=== PATIENT | female | born 1950 | race Caucasian/White ===

== ENCOUNTER → 2016-06-23 | Outpatient (CLI) | payer MEDICARE ==
[2016-06-23 14:18] VITALS: BP 120/80; PULSE 96; RESP 20; TEMP 97.8; BMI 43.2
--- NOTE | 2016-06-23 14:35 | P.PN ---
Progress Note - Text The patient's lap band port was palpated. The site was aseptically prepped. 1% lidocaine was infiltrated into the subcutaneous tissues through a diabetic syringe. The Fleming needle was advanced into the port. Aspiration took place. A total of 2.8 ml of fluid was added. Pressure was held and a sterile dressing was applied.
--- NOTE | 2016-07-01 14:27 | P.BASOAP ---
Subjective Principal diagnosis: Morbid obesity Patient had her band empty to proximally 4-5 weeks ago. This was done as a preoperative measure. She had 2.8 mL removed at the time. She has had a bout a 20 pound weight gain since then. No pain. No heartburn. she would like to try filling back to the 2.8 at this time. Objective - Vital Signs Vital signs: Vital Signs Temp 97.8 F 06/23/16 14:11 Pulse 96 06/23/16 14:11 Resp 20 06/23/16 14:11 BP 120/80 06/23/16 14:11 Pulse Ox Intake & Output 06/22/16 06/23/16 06/23/16 18:59 06:59 18:59 Weight 114.351 kg - Exam Abdomen: Soft, nontender, nondistended Assessment/Plan (1) Morbid obesity Narrative/Plan: Will fill the patient's band back to 2.8 mL. Continue liquid diet for now. Follow-up in the office as needed. Plan: Date: 06/23/16 Initial Weight: Initial BMI: Current Weight: 114.351 kg Current BMI: 43.2 Type of Surgery: Total Volume in Band: 2.8 Previous Volume: 0 Volume Removed: 0 Volume Added: 2.8 Band Size:
== END | disposition home or self-care (01) ==
LOC: BARWHC3 13:59
PROVIDERS: ATTEND Surgery
DX: Z48.815 Encounter for surgical aftercare following surgery on the digestive system (principal); E66.01 Morbid (severe) obesity due to excess calories; Z98.84 Bariatric surgery status
CPT/HCPCS: 99212

== ENCOUNTER → 2016-12-21 | Outpatient (CLI) | payer MEDICARE | END | disposition home or self-care (01) | LOC: LABWHC1 11:22 | PROVIDERS: ATTEND Family Medicine | DX: E05.90 Thyrotoxicosis, unspecified without thyrotoxic crisis or storm (principal) | CPT/HCPCS: 36415; 84432; 84439; 84443; 84480; 86800 ==

== ENCOUNTER → 2017-03-25 | Outpatient (CLI) | payer MEDICARE ==
--- NOTE | 2017-03-26 06:42 | MM ---
Reason for exam: additional evaluation requested from prior study. Last mammogram was performed 3 years and 4 months ago. History: Patient is postmenopausal. Took progesterone for 6 years 2 months beginning at age 49. Indicated problem(s): pain in both breasts. Physical Findings: Nurse did not find any significant physical abnormalities on exam. MG 3D Diag Mammo W/Cad OSCAR Bilateral CC and MLO view(s) were taken. Prior study comparison: November 17, 2013, bilateral MG screening mammo w CAD. March 03, 2012, bilateral digital screening mammo w/CAD. The breast tissue is heterogeneously dense. This may lower the sensitivity of mammography. Stable benign calcifications. There is no discrete abnormality including area of concern. No significant new findings when compared with previous films. These results were verbally communicated with the patient and result sheet given to the patient on 03/25/17. ASSESSMENT: Benign, BI-RAD 2 RECOMMENDATION: Routine screening mammogram of both breasts in 1 year. Manage patient on a clinical basis.
== END | disposition home or self-care (01) ==
LOC: RADMAMWWP 14:21
PROVIDERS: ATTEND Family Medicine
DX: N64.4 Mastodynia (principal)
CPT/HCPCS: G0204; G0279

== ENCOUNTER → 2017-10-18 | Outpatient (CLI) | payer MEDICARE ==
[2017-10-18 13:01] LABS: Basophils % (A) 1 %; Eosinophils # (A) 0.2 k/uL (0-0.7); Eosinophils % (A) 4 %; HCT 43.2 % (34.0-46.0); HGB 13.5 gm/dL (11.4-16.0); Hypochromasia Slight; Lymphocytes # (A) 1.3 k/uL (1.0-4.8); Lymphocytes % (A) 27 %; MCHC 31.2 g/dL (31.0-37.0); MCV 86.4 fL (80.0-100.0); Mean Platelet Volume 7.9; Monocytes # (A) 0.5 k/uL (0-1.0); Monocytes % (A) 10 %; Neutrophils # (A) 2.6 k/uL (1.3-7.7); Neutrophils % (A) 55 %; Platelet Count 302 k/uL (150-450); RBC 5.01 m/uL (3.80-5.40); RDW 14.8 % (11.5-15.5); WBC 4.7 k/uL (3.8-10.6)
[2017-10-18 13:16] LABS: Potassium 4.4 mmol/L (3.5-5.1)
== END | disposition home or self-care (01) ==
LOC: LABPAT 11:57
PROVIDERS: ATTEND Orthopaedic Surgery
DX: Z01.812 Encounter for preprocedural laboratory examination (principal); M23.92 Unspecified internal derangement of left knee; Z01.818 Encounter for other preprocedural examination
CPT/HCPCS: 36415; 80051; 85025; 93005

== ENCOUNTER 2017-10-28 09:25 | Day surgery (SDC) | payer MEDICARE ==
[2017-10-25 15:52] VITALS: BMI 41.1
--- NOTE | 2017-10-27 16:23 | HP ---
HISTORY AND PHYSICAL DATE OF SURGERY: 10/28/2017 Kaitlin Lindsey is a 67-year-old patient seen with progressive left knee pain. Treatment options were discussed with her. She elected to proceed with arthroscopy. Consent was obtained. PAST MEDICAL HISTORY: 1. Depression. 2. Gastroesophageal reflux disease. 3. Hypertension. PAST SURGICAL HISTORY: 1. section. 2. Cholecystectomy. 3. Lap band surgery. 4. Hip replacement surgery. DAILY MEDICATIONS: 1. Pantoprazole. 2. Ultram. 3. Maxzide. 4. Tramadol. ALLERGIES: NONE REPORTED. SOCIAL HISTORY: Patient denies current tobacco use. PHYSICAL EVALUATION OF THE LEFT KNEE: Range of motion is -8 to 100 degrees. Mild effusion. Tenderness along the medial joint line. Positive medial Jesus's. Ligaments are stable. Hip rotation without pain. Distal neurovascular exam intact. RADIOGRAPHS: Radiographs of the left knee revealed moderate tricompartmental osteoarthritis. An MRI of the left knee revealed medial meniscal tear and osteoarthritis. IMPRESSION: Internal derangement, left knee, with medial meniscal tear. PLAN: Left knee arthroscopy with partial meniscectomy and debridement. MMODL / IJN: [id number] /
[~2017-10-28 09:25] MED LIST: DEXAMETHASONE SOD PHOSPHATE 10 MG/ML 1 ML VIAL IV ONE; LACTATED RINGERS 1,000 ML IV SCH; LIDOCAINE 1% 20 ML VIAL (10MG/ML) FOR IV START INTRADERMA PRN; MIDAZOLAM 2 MG/2 ML VIAL IV PRN; ONDANSETRON 4 MG/2 ML VIAL IVP ONE; ceFAZolin IN SWFI 2 GM/20 ML SYRINGE IVP ONE
[2017-10-28 11:30] VITALS: RESP 16
[2017-10-28] MEDS ORDERED: fentaNYL (PF) 50 MCG/ML 2 ML AMP ONE (12:21)
[2017-10-28] MEDS ORDERED: PROPOFOL 10 MG/ML 20 ML VIAL IV ONE (12:21)
[2017-10-28] MEDS ORDERED: LIDOCAINE 1% INJ 10MG/ML (20 ML MDV) ONE (12:21)
[2017-10-28] MEDS ORDERED: SUCCINYLCHOLINE CHLORIDE 100 MG/5 ML SYR IV ONE (12:21)
[2017-10-28] MEDS ORDERED: MIDAZOLAM 2 MG/2 ML VIAL ONE (12:21)
[2017-10-28] MEDS ORDERED: BUPIVACAINE (PF) 0.25% 30 ML VIAL SQ ONE (12:27)
--- NOTE | 2017-10-28 13:09 | P.OP ---
Date of Procedure: 10/28/17 Preoperative Diagnosis: Internal derangement left knee Postoperative Diagnosis: 1. Tear medial and lateral meniscus left knee 2. Grade 3/4 chondromalacia medial femoral condyle left knee 3. Grade 2/3 chondromalacia lateral femoral condyle left knee 4. Grade 3/4 chondromalacia patellofemoral joint left knee 5. Reactive synovitis medial and suprapatellar compartments left knee Procedure(s) Performed: 1. Arthroscopic partial medial and lateral meniscectomy left knee 2. Arthroscopic chondroplasty medial femoral condyle left knee 3. Arthroscopic chondroplasty lateral femoral condyle left knee 4. Arthroscopic chondroplasty patella left knee 5. Arthroscopic partial synovectomy medial and suprapatellar compartments left knee Anesthesia: K[place], local Surgeon: Alexsander Plasencia Estimated Blood Loss (ml): 8 Pathology: none sent Condition: stable Disposition: PACU Indications for Procedure: 67-year-old patient seen with progressive left knee pain. After treatment options were discussed, she elected to proceed with arthroscopy. Operative Findings: see description of procedure Description of Procedure: Patient was taken to the operative suite. Patient underwent a general anesthetic by the department of anesthesia. Patient was given preoperative antibiotics. The left lower extremity was placed in a well-padded arthroscopic leg gonzalez. The left leg was prepped and draped in the normal sterile orthopedic fashion. A lateral parapatellar and suprapatellar incision was made. Trochars were inserted. Arthroscopy was initiated. Suprapatellar pouch revealed diffuse thick reactive synovitis. The patellofemoral joint appeared to articulate congruently. There was grade 3/4 chondromalacia the patellofemoral joint with osteochondral tears present. The scope was guided into the medial gutter. No loose bodies or plica were identified. The scope was then guided into the medial compartment. A medial parapatellar incision was made. Trocar inserted followed by probe. It was a tear involving the posterior horn medial meniscus. There were grade 3 and 4 chondromalacia changes of the medial femoral condyle with osteochondral tears present. There was reactive synovitis anteriorly. I performed a partial medial meniscectomy down to stable tissue. I performed a chondroplasty of the medial femoral condyle down to stable tissue. I performed a partial synovectomy. The residual meniscus and osteochondral surface were found to be stable. Scope and probe were then guided into the intercondylar notch. Cruciates were identified , probed and found to be stable. The scope and probe were then guided into lateral compartment. There was some tearing of the midbody and posterior horn of the lateral meniscus. There were grade 2/3 chondromalacia changes of the lateral femoral condyle with osteochondral tears present. There was no significant reactive synovitis. I performed a partial lateral meniscectomy down to stable tissue. I performed a chondroplasty of the lateral femoral condyle down to stable tissue. The residual meniscus and osteochondral surfaces were stable. The scope was in guided back into the suprapatellar compartment. I introduced a motorized shaver into the super patellar compartment. I debrided some piecemeal fragments of meniscus I encountered. I performed a chondroplasty of the patella and femoral sulcus getting down to stable osteochondral tissue. I performed a partial synovectomy. The shaver was removed. I took one more look on the entire knee, no residual debris. Instruments were now removed from the joint. The joint was infiltrated with .25 % Marcaine. Steri-Strips were applied to the portal sites. Sterile dressings were applied. The patient was placed into a BERNICE hose. No tourniquet was utilized. The patient was awakened, transferred to a bed and taken to recovery stable satisfactory condition.
[2017-10-28] MEDS: HYDROmorphone 0.5 MG/0.5 ML SYRINGE IVP ONE ×2 (13:15→14:04)
[2017-10-28 13:22] VITALS: TEMP 97.2
[2017-10-28] MEDS: MORPHINE SULFATE 4 MG/ML SYRINGE IV PRN ×2 (13:27→13:37)
[2017-10-28] MEDS ORDERED: HYDROcodone/APAP 7.5-325MG 1 EACH TAB PO ONE (14:23)
[2017-10-28 14:48] VITALS: BP 133/85; PULSE 60
== END 2017-10-28 15:25 | disposition home or self-care (01) ==
LOC: OR 09:25
PROVIDERS: ATTEND Orthopaedic Surgery
DX: M23.352 Other meniscus derangements, posterior horn of lateral meniscus, left knee (principal); M23.322 Other meniscus derangements, posterior horn of medial meniscus, left knee; M65.862 Other synovitis and tenosynovitis, left lower leg; M22.42 Chondromalacia patellae, left knee; F32.9 Major depressive disorder, single episode, unspecified; K21.9 Gastro-esophageal reflux disease without esophagitis; I10 Essential (primary) hypertension; K52.9 Noninfective gastroenteritis and colitis, unspecified; Z79.899 Other long term (current) drug therapy; Z79.891 Long term (current) use of opiate analgesic; Z90.49 Acquired absence of other specified parts of digestive tract; Z88.6 Allergy status to analgesic agent; J45.909 Unspecified asthma, uncomplicated; Z96.643 Presence of artificial hip joint, bilateral
CPT/HCPCS: 29880; J2250; J2270; J1100; J2405; J2001; J3010; J0330; J2704; J1170; J0690

== ENCOUNTER → 2019-04-10 | Outpatient (CLI) | payer MEDICARE | END | disposition home or self-care (01) | LOC: LABPAT 11:00 | PROVIDERS: ATTEND Orthopaedic Surgery | DX: Z01.812 Encounter for preprocedural laboratory examination (principal) | CPT/HCPCS: 87070 ==

== ENCOUNTER → 2020-07-23 | Outpatient (CLI) | payer MEDICARE ==
[2020-07-23 14:01] VITALS: BP 135/84; PULSE 89; TEMP 98.4; BMI 44.9
--- NOTE | 2020-07-23 15:44 | P.BASOAP ---
Subjective Progress Note Date: 07/23/20 Principal diagnosis: Morbid obesity Patient known to our service. Last seen December 2018. At that time she had her band adjusted from 2-1.8 mL. Lately feels that she has very little restriction. She is hungry. No dysphagia, no reflux. Presurgical weight 317, current weight 262, weight when last seen 235. Objective - Vital Signs Vital signs: Vital Signs Temp 98.4 F 07/23/20 13:59 Pulse 89 07/23/20 13:59 Resp BP 135/84 07/23/20 13:59 Pulse Ox Intake & Output 07/22/20 07/23/20 07/23/20 18:59 06:59 18:59 Weight 118.841 kg - Exam Abdomen: Soft, nontender, nondistended Assessment/Plan (1) Morbid obesity Narrative/Plan: Patient would like band adjustment. We will add 0.2 mL of fluid. Follow-up 2-3 months. The patient's lap band port was palpated. The site was aseptically prepped. The Fleming needle was advanced into the port. A total of 0.2 ml of fluid was added for a total of 2 mL.. Pressure was held and a sterile dressing was applied. Plan: Date: 07/23/20 Initial Weight: Initial BMI: Current Weight: 118.841 kg Current BMI: 44.9 Type of Surgery: Total Volume in Band: 2.0 Previous Volume: Volume Removed: Volume Added: 0.2 Band Size:
== END | disposition home or self-care (01) ==
LOC: BARWHC3 13:31
PROVIDERS: ATTEND Surgery
DX: E66.01 Morbid (severe) obesity due to excess calories (principal); Z46.51 Encounter for fitting and adjustment of gastric lap band; Z68.41 Body mass index [BMI] 40.0-44.9, adult
CPT/HCPCS: 99212

== ENCOUNTER → 2021-03-05 | Outpatient (CLI) | payer MEDICARE ==
--- NOTE | 2021-03-05 17:02 | CT ---
EXAMINATION TYPE: CT brain wo con DATE OF EXAM: 03/05/2021 HISTORY: syncope, fall stat hold and call CT DLP: 1126.80 mGycm. Automated Exposure Control for Dose Reduction was Utilized. TECHNIQUE: CT scan of the head is performed without contrast. COMPARISON: None. FINDINGS: There is no acute intracranial hemorrhage or midline shift identified. There is mild diff use ventricular and sulcal prominence consistent with diffuse age-related cerebral atrophy. There is mild to moderate low-attenuation in the periventricular white matter consistent with chronic small v essel ischemic change. The globes are intact and the visualized sinuses are clear. The calvarium i s intact. IMPRESSION: No acute intracranial hemorrhage or midline shift. There is mild diffuse age-related ce rebral atrophy and mild to moderate chronic small vessel ischemic change noted.
--- NOTE | 2021-03-05 17:10 | CT ---
EXAMINATION TYPE: CT cervical spine wo con DATE OF EXAM: 03/05/2021 COMPARISON: NONE HISTORY: syncope/fall injury with neck pain CT DLP: 633.50 mGycm. Automated Exposure Control for Dose Reduction was Utilized. TECHNIQUE: CT scan of the cervical spine is obtained without contrast, axial images are obtained, sa gittal and coronal reformatted images are also reviewed. FINDINGS: Cervical spine is visualized in its entirety from C1 through upper thoracic levels, demonst rates straightened alignment without evidence of acute fracture or dislocation. Prevertebral soft ti ssue appears within normal limits. The C1-C2 articulation is within normal limits on the coronal janene ges. Vertebral body heights are maintained. Moderate disc space narrowing and moderate to severe spur ring C5-C6 and C6-C7 levels . Posterior spur disc complexes efface the anterior thecal sac at these l evels on sagittal and axial images. Review of axial images shows additional marginal spurring causing bilateral neural foraminal narrowin g at C5-C6 and C6-C7 levels.. Thyroid gland shows subcentimeter right-sided thyroid nodules. Lung api barb show no pneumothorax. IMPRESSION: There is no acute fracture or dislocation evident in the cervical spine.
--- NOTE | 2021-03-06 08:19 | XR ---
Right foot HISTORY: R55 syncope; W19.XXXA Fall; S09.90XA 3 views of the right foot There are degenerative changes at the first metatarsophalangeal joint. There is associated soft tissu e swelling, mild hallux valgus deformity. Bone mineralization is reduced. There is a plantar calcanea l spur. Marked enthesophyte present at the insertion of the Achilles tendon within oval calcification measuring 2.5 cm. Digits are flexed which could limit evaluation. There is soft tissue swelling. Spu rring is present at the tarsometatarsal joints, intertarsal joints. IMPRESSION: Osteoarthritis. No fracture or dislocation is evident. There is soft tissue swelling pres ent. Follow-up as indicated.
== END | disposition home or self-care (01) ==
LOC: RADCTMAIN 16:17
PROVIDERS: ATTEND Family Medicine
DX: R55 Syncope and collapse (principal); S09.90XA Unspecified injury of head, initial encounter; S19.9XXA Unspecified injury of neck, initial encounter; M19.071 Primary osteoarthritis, right ankle and foot; I67.82 Cerebral ischemia; W19.XXXA Unspecified fall, initial encounter
CPT/HCPCS: 70450; 72125

== ENCOUNTER → 2023-10-26 | Outpatient (CLI) | payer MEDICARE ==
[2023-10-26 14:54] VITALS: BP 149/86; PULSE 77; RESP 16; TEMP 98.3; BMI 44.2
--- NOTE | 2023-10-26 16:23 | P.BASOAP ---
Subjective Progress Note Date: 10/26/23 Principal diagnosis: Morbid obesity Patient doing well. Last seen 3 years ago. Patient says she wants to try a carnivore diet at this time. She is requesting the band be emptied. Weight has been stable. No significant vomiting. Mild GERD symptoms at times. Objective - Vital Signs Vital signs: Vital Signs Temp 98.3 F 10/26/23 14:11 Pulse 77 10/26/23 14:11 Resp 16 10/26/23 14:11 BP 149/86 10/26/23 14:11 Pulse Ox FiO2 Intake & Output 10/25/23 10/26/23 10/26/23 18:59 06:59 18:59 Weight 117.027 kg - Exam Abdomen: Soft, nontender, nondistended Assessment/Plan (1) Morbid obesity Narrative/Plan: Patient interested in emptying the band at this time. She is considering Lap- Band removal. Discussed options. Will first empty the band to see how the patient does with her weight and restriction. The patient's lap band port was palpated. The site was aseptically prepped. The Fleming needle was advanced into the port. A total of 2 ml of fluid was removed. Band is now empty.. Pressure was held and a sterile dressing was applied. Plan: Date: 10/26/23 Initial Weight: Initial BMI: Current Weight: 117.027 kg Current BMI: 44.2 Type of Surgery: Adjustable Gastric Banding Total Volume in Band: 2.0 Previous Volume: Volume Removed: Volume Added: Band Size:
== END ==
LOC: BARWHC3 13:49
PROVIDERS: ATTEND Surgery
DX: E66.01 Morbid (severe) obesity due to excess calories (principal); Z46.51 Encounter for fitting and adjustment of gastric lap band; Z98.84 Bariatric surgery status; Z88.6 Allergy status to analgesic agent; Z68.41 Body mass index [BMI] 40.0-44.9, adult
CPT/HCPCS: 43999

== ENCOUNTER 2024-02-02 18:00 | Observation (INO) | payer MEDICARE ==
[2024-02-02] MEDS ORDERED: traMADol 50 MG TAB ONE (21:53)
[2024-02-02] MEDS ORDERED: cefTRIAXone 1 GM VIAL ONE (21:53)
[2024-02-02] MEDS ORDERED: GABAPENTIN 300 MG CAP ONE (21:54)
[2024-02-02] MEDS ORDERED: SODIUM CHLORIDE 0.9% 50 ML BAG ONE ×2 (23:59)
[2024-02-02] MEDS ORDERED: SODIUM CHLORIDE 0.9% 1,000 ML BAG ONE (23:59)
[2024-02-03] MEDS ORDERED: metroNIDAZOLE-NS PMX 100 ML ONE ×4 (01:23→22:14)
[2024-02-03] MEDS ORDERED: DOCUSATE 100 MG CAP ONE (06:19)
[2024-02-03] MEDS ORDERED: traMADol 50 MG TAB ONE ×3 (06:19→22:16)
[2024-02-03] MEDS ORDERED: cefTRIAXone 1 GM VIAL ONE (10:15)
[2024-02-03] MEDS ORDERED: GABAPENTIN 300 MG CAP ONE ×3 (13:02→22:18)
[2024-02-03] MEDS ORDERED: PANTOPRAZOLE 40 MG TABLET PO ONE (13:02)
[2024-02-03] MEDS ORDERED: METOPROLOL TARTRATE 50 MG TAB ONE (13:02)
[2024-02-03] MEDS ORDERED: CITALOPRAM HYDROBROMIDE 20 MG TAB ONE (13:02)
[2024-02-03] MEDS ORDERED: FOLIC ACID 1 MG TAB ONE (13:02)
[2024-02-03] MEDS ORDERED: POTASSIUM CHLORIDE ER 20 MEQ TAB.ER PO ONE (13:06)
[2024-02-03] MEDS ORDERED: LORATADINE 10 MG TAB ONE (13:10)
[2024-02-03] MEDS ORDERED: SODIUM CHLORIDE 0.9% 50 ML BAG ONE (23:59)
[2024-02-03] MEDS ORDERED: SODIUM CHLORIDE 0.9% 1,000 ML BAG ONE (23:59)
[2024-02-03] MEDS ORDERED: sulfaSALAzine 500 MG TAB ONE (23:59)
[2024-02-04] MEDS ORDERED: metroNIDAZOLE-NS PMX 100 ML ONE (05:06)
[2024-02-04] MEDS ORDERED: traMADol 50 MG TAB ONE ×2 (05:06→12:57)
[2024-02-04] MEDS ORDERED: PANTOPRAZOLE 40 MG TABLET PO ONE (06:44)
[2024-02-04] MEDS ORDERED: cefTRIAXone 1 GM VIAL ONE (08:31)
[2024-02-04] MEDS ORDERED: POTASSIUM CHLORIDE ER 20 MEQ TAB.ER PO ONE (08:33)
[2024-02-04] MEDS ORDERED: FOLIC ACID 1 MG TAB ONE (08:34)
[2024-02-04] MEDS ORDERED: CITALOPRAM HYDROBROMIDE 20 MG TAB ONE (08:34)
[2024-02-04] MEDS ORDERED: LORATADINE 10 MG TAB ONE (08:34)
[2024-02-04] MEDS ORDERED: GABAPENTIN 300 MG CAP ONE ×2 (08:35→12:57)
--- NOTE | 2024-02-22 12:21 | CT ---
Kaitlin Lindsey ID: [id number] : 1950 EXAMINATION TYPE: CT abdomen pelvis w con DATE OF EXAM: 02/02/2024 COMPARISON: None HISTORY: 73-year-old female colitis, abdominal pain, constipation TECHNIQUE: Contiguous axial scanning of the abdomen and pelvis following administration of 100 ml Iso jose 300 IV contrast. Delayed images through the kidneys and coronal/sagittal reconstructions perform ed. CT DLP: 1708.2 mGycm Automated exposure control for dose reduction was used. FINDINGS: The heart is upper limits of normal in size without pericardial effusion. Some patchy dependent atele ctasis lower lungs. Asymmetric elevation left hemidiaphragm. Lap band device is in place. Gallbladder surgically absent. Portal venous system is patent. No biliary ductal dilatation. No focal liver lesion. Adrenal glands, right kidney, spleen, and pancreas within normal limits. 1.5 cm centrally located cyst left kidney. Symmetric uptake and excretion of contrast from both kidne ys. No dilated small bowel, fluid, or free air. No mesenteric or retroperitoneal lymphadenopathy. Scattered liquid stool within the colon. There is mid sigmoid diverticula low cysts with a small to moderate circumferential wall thickening a nd pericolonic fat stranding at the mid sigmoid colon. No abnormal fluid collection is seen. Extensive metal artifact relating to the patient's bilateral: Plasties limiting detailed assessment o f the pelvis. Bladder is urine distended. Uterus anteverted. Ovaries are visualized. No caitie pelvic free fluid. Pelvic phleboliths. No pelvic lymphadenopathy seen. Bones: Facet arthropathy mid to lower lumbar spine. Degenerative grade 1 anterolisthesis L3-L4 and L4 -L5. Mild to moderate degenerative disc disease throughout. IMPRESSION: 1. SIGMOID DIVERTICULOSIS WITH MID SIGMOID WALL THICKENING AND SURROUNDING INFLAMMATORY FAT STRANDING . CORRELATE FOR ACUTE DIVERTICULITIS WITH MILD TO MODERATE INFLAMMATION. NO ABSCESS OR FREE AIR. 2. DIRECT VISUALIZATION AFTER SUCCESSFUL TREATMENT TO EXCLUDE UNDERLYING NEOPLASM.
--- NOTE | 2024-03-09 14:46 | PN ---
PROGRESS NOTE DATE OF SERVICE: 02/04/2024 SUBJECTIVE: The patient is improving. She has no complaints of abdominal pain. OBJECTIVE: VITAL SIGNS: Appear stable. ABDOMEN: Soft. ASSESSMENT AND PLAN: Resolving diverticulitis. The patient is stable for discharge home. She will be discharged home on Levaquin 500 mg p.o. daily for 10 days. She will follow up with the office next week. MMODL / IJN: [id number] /
== END 2024-02-04 14:05 | disposition home or self-care (01) ==
LOC: EC 18:00 → 6NMEDSUR 21:09
PROVIDERS: ADMIT Family Medicine; ATTEND Family Medicine
DX: K57.32 Diverticulitis of large intestine without perforation or abscess without bleeding (principal); K59.00 Constipation, unspecified; J98.11 Atelectasis; M51.36 Other intervertebral disc degeneration, lumbar region; K21.9 Gastro-esophageal reflux disease without esophagitis; I10 Essential (primary) hypertension; G47.33 Obstructive sleep apnea (adult) (pediatric); E66.01 Morbid (severe) obesity due to excess calories; Z90.49 Acquired absence of other specified parts of digestive tract; Z98.84 Bariatric surgery status
CPT/HCPCS: 74177

== ENCOUNTER → 2024-12-12 | Outpatient (CLI) | payer MEDICARE ==
[2024-12-12 12:58] VITALS: BP 133/88; PULSE 99; TEMP 98; BMI 46.1
--- NOTE | 2024-12-12 14:05 | P.BASOAP ---
Subjective Progress Note Date: 12/12/24 Principal diagnosis: Morbid obesity Patient known to our service. Last seen 1 year ago. Since then she has had numerous health issues. Most notably left upper quadrant shingles and exacerbation of ulcerative colitis. Having intermittent bleeding and mucus. Following with GI for that. Patient has gained 11 pounds since she was seen a year ago. 2 cc was removed from her band at the time and her band is now empty. Says her band does feel loose. No heartburn. No vomiting. She is complaining of more pain at her port site and says it is sticking out more than it used to. Patient was going to try a GLP-1 agonist but was unable to do so because of cost. Objective - Vital Signs Vital signs: Vital Signs Temp 98 F 12/12/24 12:55 Pulse 99 12/12/24 12:55 Resp BP 133/88 12/12/24 12:55 Pulse Ox FiO2 Intake & Output 12/11/24 12/12/24 12/12/24 18:59 06:59 18:59 Weight 122.016 kg - Exam Abdomen: Soft, nondistended, mild tenderness at port site, port is sticking out a bit, overlying skin is healthy, no erythema Assessment/Plan (1) Morbid obesity Narrative/Plan: 74-year-old female known to our service. Patient here to discuss options. Patient is having more pain from her Lap-Band itself particular at the port site. Discussed options. Patient is agreeable to proceed with band removal. This will be scheduled. Continue GI follow-up. Patient states she was recently diagnosed with atrial fibrillation and is going through cardiac workup for that. Would not proceed with lap band removal until cardiac evaluation complete. Plan: Date: 12/12/24 Initial Weight: Initial BMI: Current Weight: 122.016 kg Current BMI: 46.1 Type of Surgery: Total Volume in Band: 2.0 Previous Volume: Volume Removed: Volume Added: Band Size:
== END ==
LOC: BARWHC3 12:44
PROVIDERS: ATTEND Surgery
DX: E66.01 Morbid (severe) obesity due to excess calories (principal); Z68.42 Body mass index [BMI] 45.0-49.9, adult; Z88.6 Allergy status to analgesic agent; Z88.8 Allergy status to other drugs, medicaments and biological substances
CPT/HCPCS: 99211

== ENCOUNTER → 2024-12-18 | Outpatient (CLI) | payer MEDICARE ==
--- NOTE | 2024-12-18 16:19 | XR ---
EXAMINATION TYPE: XR abdomen 2V DATE OF EXAM: 12/18/2024 4:14 PM COMPARISON: 02/02/2024 CLINICAL INDICATION: Female, 74 years old with history of R19.7 DIARRHEA; [facility] TECHNIQUE: Two views of the abdomen were obtained. FINDINGS: Bilateral hip arthroplasties appear intact. Multilevel degeneration changes spine. Scattere d pelvic pubis. Right upper quadrant course significance. Nonspecific bowel gas pattern. Gastric slee ve that band is present. No evidence of fracture. Moderate right sided stool burden. Moderate right-sided stool burden. IMPRESSION: Nonspecific bowel gas pattern without radiographic evidence for acute process. [facility], , 12/18/2024 4:17 PM
[2024-12-18 20:05] LABS: HCT 38.5 % (37.2-46.3); HGB 12.4 g/dL (12.0-15.0); MCH 34.2 pg (27.0-32.0); MCHC 32.2 g/dL (32.0-37.0); MCV 106.1 FL (80.0-97.0); NRBC Per 100 WBC 0 X 10*3/uL (0.00-0.01); Platelet Count 163 X 10*3/uL (140-440); RBC 3.63 X 10*6/uL (4.10-5.20); RDW 13.6 % (11.5-14.5); WBC 4.12 X 10*3/uL (4.50-10.00)
[2024-12-18 21:19] LABS: Basophils # (A) 0.04 X 10*3/uL (0.00-0.10); Basophils % (A) 1.0 %; Eosinophils # (A) 0.04 X 10*3/uL (0.04-0.35); Eosinophils % (A) 1.0 %; Immature Grans, Automated 0.70 %; Lymphocytes # (A) 1.37 X 10*3/uL (0.90-5.00); Lymphocytes % (A) 33.3 %; Macrocytosis (M) 2+ (None Seen); Monocytes # (A) 0.80 X 10*3/uL (0.20-1.00); Monocytes % (A) 19.4 %; Neutrophils # (A) 1.84 X 10*3/uL (1.80-7.70); Neutrophils % (A) 44.6 %
[2024-12-18 21:28] LABS: ALT 26 U/L (8-44); AST 34 U/L (13-35); Albumin 4.0 g/dL (3.8-4.9); Albumin/Globulin Ratio 1.67 Ratio (1.60-3.17); Alkaline Phosphatase 117 U/L (41-126); Amylase 54 U/L (23-121); Anion Gap 10.70 mmol/L (4.00-12.00); BUN/Creat Ratio 23.00 Ratio (12.00-20.00); Blood Urea Nitrogen 13.8 mg/dL (9.0-27.0); Calcium 9.2 mg/dL (8.7-10.3); Carbon Dioxide 24.3 mmol/L (21.6-31.8); Chloride 105 mmol/L (96-109); Globulin 2.4 g/dL (1.6-3.3); Glucose 91 mg/dL (70-110); Lipase 39 U/L (14-63); Potassium 4.3 mmol/L (3.5-5.5); Sodium 140 mmol/L (135-145); Total Protein 6.4 g/dL (6.2-8.2)
== END | disposition home or self-care (01) ==
LOC: LABWHC1 15:08
PROVIDERS: ATTEND Physician Assistant
DX: R19.7 Diarrhea, unspecified (principal); R11.10 Vomiting, unspecified; Z96.643 Presence of artificial hip joint, bilateral
CPT/HCPCS: 36415; 74019; 80053; 82150; 83690; 85025; 87045; 87046; 87324; 87328; 87329

== ENCOUNTER 2025-01-10 14:39 | Emergency (ER) | payer MEDICARE ==
--- NOTE | 2025-01-10 14:51 | ED ---
Abdominal Pain HPI - General Chief Complaint: Abdominal Pain Stated Complaint: Bowel Issue Time Seen by Provider: 01/10/25 14:50 Source: patient, RN notes reviewed, old records reviewed Mode of arrival: ambulatory Limitations: no limitations - History of Present Illness Initial Comments: This is a 74-year-old female to ER for evaluation of patient believes she is having symptoms of oxygen which she believes was on her prior x-ray. Symptoms now more or less left lower quadrant abdominal pain. Positive nausea no vomiting no fevers. MD Complaint: abdominal pain -: days(s) Location: diffuse, LLQ Radiation: LLQ, suprapubic, back Migration to: suprapubic Severity: moderate Severity scale (1-10): 6 Quality: cramping, stabbing Consistency: intermittent, colicky Improves With: nothing, vomiting Worsens With: nothing - Related Data Home Medications Medication Instructions Recorded Confirmed traMADol HCl [Ultram] 50 mg PO TID 03/05/14 12/12/24 Pantoprazole Sodium 20 mg PO DAILY 05/19/16 12/12/24 Ada-3 Fatty Acids/Fish Oil [Fish 1 each PO DAILY 10/25/17 12/12/24 Oil 1,000 mg Softgel] Cholecalciferol (Vitamin D3) 125 mcg PO DAILY 11/01/23 12/12/24 [Vitamin D3 (125 MCG = 5,000 IU)] Citalopram Hydrobromide 10 mg PO DAILY 11/01/23 12/12/24 [Citalopram HBr] Gabapentin [Neurontin] 300 mg PO BID 11/01/23 12/12/24 L.acidoph,Paracasei, B.lactis 1 capsule PO DAILY 11/01/23 12/12/24 [Probiotic] Loratadine [Claritin] 10 mg PO DAILY 11/01/23 12/12/24 Potassium Chloride [Klor-Con 20 20 meq PO DAILY 11/01/23 12/12/24 Packets] Triamterene/Hydrochlorothiazid 1 tab PO DAILY 11/01/23 12/12/24 [Triamterene-Hctz 75-50 mg Tab] sulfaSALAzine 500 mg PO QID 11/01/23 12/12/24 Metoprolol Tartrate [Lopressor] 25 mg PO DAILY 07/01/25 07/01/25 Previous Rx's Medication Instructions Recorded Amoxic-Pot Clav 875-125Mg 1 tab PO Q12HR #20 tablet 01/10/25 [Augmentin 875-125] Ondansetron Odt [Zofran ODT] 4 mg PO Q8HR PRN #20 tab 01/10/25 Allergies Allergy/AdvReac Type Severity Reaction Status Date / Time aspirin AdvReac GI Bleed Verified 01/10/25 14:44 NSAIDS (Non-Steroidal AdvReac GI bleed Verified 01/10/25 14:44 Anti-Inflamma Review of Systems ROS Statement: Those systems with pertinent positive or pertinent negative responses have been documented in the HPI. ROS Other: All systems not noted in ROS Statement are negative. Past Medical History Past Medical History: GERD/Reflux, Hypertension, Osteoarthritis (OA), Respiratory Disorder Additional Past Medical History / Comment(s): HX anemia, BRONCHIECTESIS. HAS RT ROTATOR CUFF IMPINGEMENT. Ulcerative Colitis History of Any Multi-Drug Resistant Organisms: None Reported Past Surgical History: Bariatric Surgery, Section, Cholecystectomy, Joint Replacement, Orthopedic Surgery Additional Past Surgical History / Comment(s): Lap Band Surgery ( pt states getting lap band fluid emptied 03/07/14), Varicose Vein Surgery, OSCAR hip replacement. Rt shoulder surgery (rotater cuff) May 2016. left knee prelacement Past Anesthesia/Blood Transfusion Reactions: Previous Problems w/ Anesthesia Additional Past Anesthesia/Blood Transfusion Reaction / Comment(s): HX diff coming out X1. Past Psychological History: Depression Smoking Status: Never smoker Past Alcohol Use History: Occasional Past Drug Use History: None Reported - Past Family History Mother Family Medical History: Cancer, Diabetes Mellitus General Exam Limitations: no limitations General appearance: alert, in no apparent distress Head exam: Present: atraumatic, normocephalic, normal inspection Eye exam: Present: normal appearance, PERRL, EOMI. Absent: scleral icterus, conjunctival injection, periorbital swelling ENT exam: Present: normal exam, mucous membranes moist Neck exam: Present: normal inspection. Absent: tenderness, meningismus, lymphadenopathy Respiratory exam: Present: normal lung sounds bilaterally. Absent: respiratory distress, wheezes, rales, rhonchi, stridor Cardiovascular Exam: Present: regular rate, normal rhythm, normal heart sounds. Absent: systolic murmur, diastolic murmur, rubs, gallop, clicks GI/Abdominal exam: Present: soft, tenderness, guarding, normal bowel sounds. Absent: distended, rebound, rigid Extremities exam: Present: normal inspection, full ROM, normal capillary refill. Absent: tenderness, pedal edema, joint swelling, calf tenderness Back exam: Present: normal inspection Neurological exam: Present: alert, oriented X3, CN II-XII intact Psychiatric exam: Present: normal affect, normal mood Skin exam: Present: warm, dry, intact, normal color. Absent: rash Course Vital Signs 01/10/25 14:41 Temperature 97.8 F Pulse Rate 89 Respiratory 18 Rate Blood Pressure 123/78 O2 Sat by Pulse 94 L Oximetry - Reevaluation(s) Reevaluation #1: 01/10/25 16:57 Medical records reviewed Reevaluation #2: 01/10/25 16:58 Patient symptoms improved Reevaluation #3: 01/10/25 16:58 Patient informed of results questions answered Reevaluation #4: Was pt. sent in by a medical professional or institution (, PA, INSPECTOR AND MENDER, urgent care, hospital, or alf...) When possible be specific @ -no Did you speak to anyone other than the patient for history (EMS, parent, family, police, friend...)? What history was obtained from this source @ -no Did you review nursing and triage notes (agree or disagree)? Why? @ -agree Are old charts reviewed (outside hosp., previous admission, EMS record, old EKG, old radiological studies, urgent care reports/EKG's, alf records)? Report findings @ -yes Differential Diagnosis (chest pain, altered mental status, abdominal pain women, abdominal pain men, vaginal bleeding, weakness, fever, dyspnea, syncope, headache, dizziness, GI bleed, back pain, seizure, CVA, palpatations, mental health, musculoskeletal)? @ -prior EKG interpreted by me (3pts min.). @ -yes X-rays interpreted by me (1pt min.). @ -yes negative for acute disease CT interpreted by me (1pt min.). @ -no U/S interpreted by me (1pt. min.). @ -no What testing was considered but not performed or refused? (CT, X-rays, U/S, labs)? Why? @ -none What meds were considered but not given or refused? Why? @ -none Did you discuss the management of the patient with other professionals (professionals i.e. , PA, INSPECTOR AND MENDER, lab, RT, psych nurse, social media intern, electric locomotive crane operator, teacher, media liaison officer, case monitor)? Give summary @ -no Was smoking cessation discussed for >3mins.? @ -no Was critical care preformed (if so, how long)? @ -no Were there social determinants of health that impacted care today? How? (Homelessness, low income, unemployed, alcoholism, drug addiction, transp ortation, low edu. Level, literacy, decrease access to med. care, [facility], rehab)? @ -none Was there de-escalation of care discussed even if they declined (Discuss DNR or withdrawal of care, Hospice)? DNR status @ -no What co-morbidities impacted this encounter? (DM, HTN, Smoking, COPD, CAD, Cancer, CVA, ARF, Chemo, Hep., AIDS, mental health diagnosis, sleep apnea, morbid obesity)? @ -none Was patient admitted / discharged? Hospital course, mention meds given and route, prescriptions, significant lab abnormalities, going to OR and other pertinent info. @ - Undiagnosed new problem with uncertain prognosis? @ -no Drug Therapy requiring intensive monitoring for toxicity (Heparin, Nitro, Insu desire, Cardizem)? @ -no Were any procedures done? @ -no Diagnosis/symptom? @ - Acute, or Chronic, or Acute on Chronic? @ -Acute Uncomplicated (without systemic symptoms) or Complicated (systemic symptoms)? @ -Complicated Side effects of treatment? @ -no Exacerbation, Progression, or Severe Exacerbation? @ -exacerbation Poses a threat to life or bodily function? How? (Chest pain, USA, MT, pneumonia, PE, COPD, DKA, ARF, appy, cholecystitis, CVA, Diverticulitis, Homicidal, Suicidal, threat to staff... and all critical care pts) @ -yes Reevaluation #5: Differential Abdominal Pain Women: Appendicitis, Cholecystitis, diverticulosis, ischemic bowel, pancreatitis, he patitis, UTI, gastroenteritis, AAA, incarcerated hernia, bowel obstruction, constipation, inflammatory bowel, hepatitis, peptic ulcer disease, splenic infarction, perforated viscus, vulvitis, ovarian torsion, PID, kidney stone, placenta abruption, this is not meant to be an all-inclusive list Medical Decision Making - Medical Decision Making 74 female with abdominal pain left lower quadrant abdominal pain positive diverticulitis uncomplicated. Patient will be discharged home on antibiotics clear liquid diet and pain control - Lab Data Result diagrams: 01/10/25 15:20 01/10/25 15:20 Lab Results 01/10/25 01/10/25 01/10/25 Range/Units 15:20 15:20 15:20 WBC 4.96 (4.50-10.00) 10*3/uL RBC 4.06 L (4.10-5.20) 10*6/uL Hgb 13.4 (12.0-15.0) g/dL Hct 41.2 (37.2-46.3) % MCV 101.5 H (80.0-97.0) fL MCH 33.0 H (27.0-32.0) pg MCHC 32.5 (32.0-37.0) g/dL Plt Count 203 (140-440) 10*3/uL MPV 10.1 (9.5-12.2) fL Immature Gran % (Auto) 1.0 % Neutrophils % 64.6 % Lymphocytes % 18.1 % Monocytes % 15.1 % Eosinophils % 0.2 % Basophils % 1.0 % Immature Gran # 0.05 H (0.00-0.04) 10*3/uL Neutrophils # 3.20 (1.80-7.70) 10*3/uL Lymphocytes # 0.90 (0.90-5.00) 10*3/uL Monocytes # 0.75 (0.20-1.00) 10*3/uL Eosinophils # 0.01 L (0.04-0.35) 10*3/uL Basophils # 0.05 (0.00-0.10) 10*3/uL Sodium 140 (137-145) mmol/L Potassium 4.2 (3.5-5.1) mmol/L Chloride 106 (98-107) mmol/L Carbon Dioxide 26 (22-30) mmol/L Anion Gap 8 mmol/L BUN 24 H (7-17) mg/dL Creatinine 0.84 (0.52-1.04) mg/dL Est GFR (CKD-EPI)AfAm 80 (>60 ml/min/1.73 sqM) Est GFR (CKD-EPI)NonAf 69 (>60 ml/min/1.73 sqM) Glucose 114 H (74-99) mg/dL Plasma Lactic Acid Puneet 1.1 (0.7-2.0) mmol/L Calcium 9.8 (8.4-10.2) mg/dL Phosphorus 3.1 (2.5-4.5) mg/dL Magnesium 2.0 (1.6-2.3) mg/dL Total Bilirubin 0.7 (0.2-1.3) mg/dL AST 58 H (14-36) U/L ALT 26 (4-34) U/L Alkaline Phosphatase 115 (38-126) U/L Total Protein 6.9 (6.3-8.2) g/dL Albumin 4.2 (3.5-5.0) g/dL Amylase 57 (30-110) U/L Lipase 151 (23-300) U/L - Radiology Data Radiology results: report reviewed (CT abdomen pelvis positive for acute diverticulitis), image reviewed Disposition Clinical Impression: Abdominal pain, Diverticulitis Disposition: HOME SELF-CARE Condition: Good Instructions (If sedation given, give patient instructions): Diverticulitis (ED) Prescriptions: Amoxic-Pot Clav 875-125Mg [Augmentin 875-125] 1 tab PO Q12HR #20 tablet Ondansetron Odt [Zofran ODT] 4 mg PO Q8HR PRN #20 tab PRN Reason: nausea/vomiting Is patient prescribed a controlled substance at d/c from ED?: No Referrals: Jaylon Christianson DO [Primary Care Provider] - 1-2 days Time of Disposition: 17:00
[2025-01-10] MEDS: SODIUM CHLORIDE 0.9% 1,000 ML IV ONE (15:27)
[2025-01-10 15:31] LABS: Basophils # (A) 0.05 10*3/uL (0.00-0.10); Basophils % (A) 1.0 %; Eosinophils # (A) 0.01 10*3/uL (0.04-0.35); Eosinophils % (A) 0.2 %; HCT 41.2 % (37.2-46.3); HGB 13.4 g/dL (12.0-15.0); Lymphocytes # (A) 0.90 10*3/uL (0.90-5.00); Lymphocytes % (A) 18.1 %; MCH 33.0 pg (27.0-32.0); MCHC 32.5 g/dL (32.0-37.0); MCV 101.5 fL (80.0-97.0); Monocytes # (A) 0.75 10*3/uL (0.20-1.00); Monocytes % (A) 15.1 %; Neutrophils # (A) 3.20 10*3/uL (1.80-7.70); Neutrophils % (A) 64.6 %; Platelet Count 203 10*3/uL (140-440); RBC 4.06 10*6/uL (4.10-5.20); RDW 12.8 % (11.5-14.5); WBC 4.96 10*3/uL (4.50-10.00)
--- NOTE | 2025-01-10 15:35 | CT ---
EXAMINATION TYPE: CT abdomen pelvis wo con DATE OF EXAM: 01/10/2025 COMPARISON: 02/02/2024 CLINICAL INDICATION: Female, 74 years old with history of abdominal pain; PHH, Abd pain, suspected bl ockage. TECHNIQUE: CT scan of the abdomen and pelvis is performed without oral or IV contrast. CT DLP: 1101.[address] CTDI: mGy Automated exposure control for dose reduction was used. FINDINGS: Within the limitations of a non-contrast study, the following observations are made. The lungs are clear. Status post lap band procedure. Gallbladder is normal and there is no gallstone, wall thickening, pericholecystic fluid or distention . There is no biliary ductal dilatation. There is no organomegaly of the liver, pancreas, spleen or adrenal glands. There are no renal calcifications or hydronephrosis. The caliber of the abdominal aorta is normal and there is no retroperitoneal adenopathy or hemorrhage . The bowel loops are normal in caliber is no evidence of obstruction. There are mild pericolic inflamm atory changes and wall thickening in the proximal sigmoid colon. There are a mildly prominent lymph n odes. Findings are consistent with acute diverticulitis without abscess, free air free fluid or bowel obstruction. There are bilateral hip prostheses with somewhat limits the evaluation of the low pelvis due to metal lic artifact IMPRESSION: Findings consistent with noncomplicated acute diverticulitis of the sigmoid colon without abscess, enmanuel wel obstruction, free air or free fluid. [facility], , 01/10/2025 3:32 PM
[2025-01-10 15:49] LABS: ALT 26 U/L (4-34); AST 58 U/L (14-36); African American GFR (CKD) 80 (>60 ml/min/1.73 sqM); Albumin 4.2 g/dL (3.5-5.0); Alkaline Phosphatase 115 U/L (38-126); Amylase 57 U/L (30-110); Anion Gap 8 mmol/L; Blood Urea Nitrogen 24 mg/dL (7-17); Calcium 9.8 mg/dL (8.4-10.2); Carbon Dioxide 26 mmol/L (22-30); Chloride 106 mmol/L (98-107); Glucose 114 mg/dL (74-99); Lipase 151 U/L (23-300); Magnesium 2.0 mg/dL (1.6-2.3); Non-African American GFR(CKD) 69 (>60 ml/min/1.73 sqM); Potassium 4.2 mmol/L (3.5-5.1); Sodium 140 mmol/L (137-145); Total Protein 6.9 g/dL (6.3-8.2)
[2025-01-10] MEDS: CIPROFLOXACIN HCL 500 MG TAB PO STA (17:49)
[2025-01-10] MEDS: metroNIDAZOLE 500 MG TAB PO STA (17:49)
[2025-01-10] MEDS: MORPHINE SULFATE 4 MG/ML SYRINGE IVP STA (17:49)
[2025-01-10] MEDS: cefTRIAXone IN SWFI 1,000 MG/10 ML SYRINGE IVP STA (17:50)
[2025-01-10] MEDS: traMADol 50 MG STARTER PACK TAB BTL PO STA (17:51)
[2025-01-10] MEDS: AMOXIC-POT CLAV 875-125MG 1 EACH TAB PO STA (17:51)
[2025-01-10] MEDS: ONDANSETRON 4 MG ODT STARTER PACK TAB BTL PO STA (17:52)
[2025-01-10 18:10] VITALS: BP 141/75; PULSE 66; RESP 17; TEMP 97.9
== END 2025-01-10 18:05 | disposition home or self-care (01) ==
LOC: EC 14:39
DX: K57.32 Diverticulitis of large intestine without perforation or abscess without bleeding (principal); Z88.6 Allergy status to analgesic agent
CPT/HCPCS: 36415; 80053; 82150; 83605; 83690; 83735; 84100; 85025; 74176; 99284; 96374; 96361; J0696; S0119